=== PATIENT | female | born 2000 | race Caucasian/White ===

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

== ENCOUNTER 2022-03-06 02:03 | Day surgery (SDC) | payer OTHER, SELFPAY ==
[2022-02-24 14:31] VITALS: BMI 23.3
--- NOTE | 2022-02-24 14:35 | PC.NURSE ---
Report to the Outpatient Waiting Room, entrance under the green pavilion located off [facility], at time 1230 on date 03/06/22. Planned Procedure Time: 1330. Time changes happen often and if your time is changed the preop area will call you the afternoon before. - You and your visitor will be asked to self-screen and do not enter if you have any COVID symptoms. - Only one visitor is requested with a max of two and NO children visitors are allowed at this time. - The patient visitor may be requested to leave or wait in car when not with patient due to distancing restrictions. - A mask is REQUIRED within the hospital. Patients may have LIGHT MEAL Take the following medications with a SIP of water the morning of surgery: RX'D (N/A) Medications to discontinue per physician: N/A Date to take last dose: N/A Please no make-up, nail nigerian, hairspray, perfume, deodorant, or body powder the day of surgery. No jewelry (including any body piercings) or valuables the day of surgery, leave them at home. Please take a shower or bath the night before, or the morning of, surgery with an antibacterial soap. Wear comfortable, loose fitting clothing. - Jewelry must be removed prior to entering the operating room. Rings and piercings that are not removed may be cut off. - The hospital will not accept responsibility for valuables. - Please leave all valuables, including medications, at home the day of surgery. YOU MAY DRIVE YOURSELF HOME FROM THE HOSPITAL. Follow any additional instructions given to you from your surgeon. If you or anyone in your household have experienced Covid symptoms in the past week, please notify your surgeon or the nurse liaison at the phone number below for possible testing. Telephone instructions given to ANAM MENJIVAR and asked if any additional questions and then verbalized understanding. Patient advised to call surgeon office or pre surgery nurse liaison [phone] if any additional questions.
--- NOTE | 2022-03-06 07:28 | WPDHPUPDATE1 ---
History and Physical Update Update Date/Time: 03/06/22 07:28 History and Physical has been reviewed, including an updated exam of the patient. There are NO changes in the patient's condition. Risks, benefits, and alternatives have been discussed and questions answered. Patient agrees to proceed with procedure.
[2022-03-06 09:54] VITALS: BP 112/80; PULSE 81; RESP 18; TEMP 37.2; O2SAT 99
[2022-03-06 11:12] VITALS: BP 110/58; PULSE 64; RESP 16; O2SAT 98
[2022-03-06 11:22] VITALS: BP 109/57; PULSE 72; RESP 16; O2SAT 99
[2022-03-06 11:33] VITALS: BP 110/61; PULSE 73; RESP 16; O2SAT 99
[2022-03-06 11:50] VITALS: BP 101/64; PULSE 66; RESP 12; O2SAT 100
--- NOTE | 2022-03-06 11:57 | W.PM.PROC2 ---
Procedure Note - Detailed Date of Procedure 03/06/22 Pre-op Diagnosis subq mass left index finger Post-op Diagnosis Same Procedure Performed Excision the 1 cm subcutaneous mass of the left little finger Surgeon Kike Mullins MD Anesthesia Local Description of Procedure The subcutaneous mass near the distal interphalangeal joint of the patient's left small finger was marked in the holding area. She was then taken to the operating room and placed supine on the operating table. A time-out was held and confirmed at that point. The extremity was prepped and draped in usual fashion. The local anesthetic of 2% lidocaine with epinephrine was infiltrated as in intrathecal block, approximately 2-1/2 milliliter. Adequate anesthesia was obtained. The red tourniquet was placed to the base of the finger. The tumor was palpated and it was determined that a diagonal incision was appropriate. This was made and the tumor was identified and resected with sharp and blunt dissection primarily. The digital nerve was identified and preserved. The mass was removed without the difficulty and it was sent to pathology. The tourniquet was released and the wound was closed with interrupted 5 0 nylon suture. Small bandage was applied as usual. She is discharged with instructions in wound care and follow-up and has a prescription e-mail to her pharmacy the for tramadol 50 mg 6. Estimated Blood Loss 1 Drains No Packing No Pathology Yes Complications No immediate complications Condition Stable Disposition Same day
== END 2022-03-06 12:19 | disposition home or self-care (01) ==
PROVIDERS: PCP Family Medicine; Visit Provider Plastic Surgery
PROC: (CPT 26115; principal; 2022-03-06 11:30)
DX: D21.12 Benign neoplasm of connective and other soft tissue of left upper limb, including shoulder (principal)
CPT/HCPCS: 26115; 88304

== ENCOUNTER 2023-01-02 12:20 | Emergency (ER) | payer OTHER, SELFPAY ==
--- NOTE | ~2023-01-02 | US_ITS ---
EXAMINATION: US OB limited DATE: 01/02/2023 16:55 INDICATION: Vaginal bleeding during second trimester . TECHNIQUE: Real-time ultrasound of the pelvis was performed. The interpreting radiologist was not pre sent for the study. COMPARISON: None. FINDINGS: There is a single living fetus in breech presentation. The placenta is anterior and not low-lying wi th no evident subchorionic hematoma. heart rate is 147 beats per minute (bpm). The amniotic is subjectively normal. IMPRESSION: 1. Single living fetus in breech presentation with heart rate of 147 bpm. 2. Normal anterior placenta. Reviewed, dictated and finalized at location A. IN[employer] MACHINE TENDER [employer] IMPRESSION: 1. Single living fetus in breech presentation with heart rate of 147 bpm . 2. Normal anterior placenta.
[2023-01-02 12:27] VITALS: BP 117/76; PULSE 78; RESP 17; TEMP 36.6; O2SAT 100
[2023-01-02 14:25] LABS: Basophils Absolute Auto 0.1 K/mm3 (0.0-0.1); Basophils Percent Auto 0.4 % (0.2-1.2); Eosinophils Absolute Auto 0.1 K/mm3 (0-0.3); Eosinophils Percent Auto 0.8 % (0-4.4); Hematocrit 38.7 % (37.0-47.0); Hemoglobin 12.6 g/dL (12.0-15.0); Immature Granulocyte Absolute 0.07 K/mm3 (0.00-0.031); Immature Granulocyte Percent A 0.5 % (0-0.5); Lymphocytes Absolute Auto 1.17 K/mm3 (0.9-3.2); Lymphocytes Percent Auto 8.2 % (18.3-44.2); Mean Corpuscular HGB Conc 32.6 g/dl (32-36); Mean Corpuscular Volume 89.2 fl (80-100); Mean Platelet Volume 10.4 fl (7.4-10.4); Monocytes Absolute Auto 0.7 K/mm3 (0.1-0.6); Monocytes Percent Auto 4.6 % (2.6-8.5); Neutrophils Absolute Auto 12.2 K/mm3 (1.3-6.7); Neutrophils Percent Auto 85.5 % (45.5-73.1); Platelet Count Result 190 k/mm3 (150-375); Red Blood Count 4.34 M/mm3 (4.2-5.4); Red Cell Distribution Width 13.2 % (11.5-14.5); White Blood Count 14.2 K/mm3 (4.5-10.0)
[2023-01-02 17:23] VITALS: BP 125/85; PULSE 75; RESP 18; O2SAT 100
--- NOTE | 2023-01-02 18:17 | ED.FEMALEGU ---
HPI - Female Genitourinary General Chief complaint: Vaginal Bleeding Stated complaint: 19 weeks - spotting Time Seen by Provider: 01/02/23 15:40 Source: patient Mode of arrival: ambulatory Limitations: no limitations History of Present Illness HPI Narrative: 22 year old female presents today with complaints of brown red discharge and a small clot about 30 mintues prior to arrival. denies urinary symptoms. did call her ob last night due to right sided pain but is not having that now. states she is eating and drinking fine. 1st without complications. denies recent sexual intercourse. ob [facility]. Holliday. Denies cramping, increased urination. Related Data Home Medications Medication Instructions Recorded Confirmed docosahexaenoic acid [ DHA] PO 12/12/22 12/12/22 Allergies Allergy/AdvReac Type Severity Reaction Status Date / Time No Known Allergies Allergy Verified 01/02/23 15:15 Review of Systems Review of Systems: All systems reviewed & are unremarkable except as noted in HPI and below PMFSH Past Medical History Medical History Abnormal ultrasound Anemia Depression Depression with anxiety Lump on finger Nausea and vomiting No pertinent past medical history Pain in finger of left hand Urinary frequency Surgical History Surgical History No pertinent past surgical history Family History Family History Grandparent Cervical cancer Ovarian cancer Father Alcoholic Mother Alcoholic Grandparent Lung cancer Social History Social History Smoking status: Never smoker Second hand tobacco smoke exposure: No Alcohol intake: never Substance use: never Substance use type: does not use Lack of Transportation: No Lack of Food: Never True Current Housing: I Have Housing Concerned About Future Housing: No Difficulty Paying Gas/Electric Bills: No Difficulty Paying for Meds: No Currently Unemployed: YES Education: High School Diploma/GED Difficulty w/ Childcare or Family Care: No Living arrangements: with family Occupation/Education: student Gender identity (if verbalized by the patient): Female Sexual Orientation (if Verbalized by the Patient): Straight or Heterosexual Spiritual care concerns: No Exam Const: General: cooperative, healthy appearing, comfortable, no acute distress and well developed Orientation/consciousness: patient oriented x3 HENMT: Head: normal to inspection Eyes: General: appearance normal, both eyes and all related structures Resp: Effort & Inspection: normal respiratory effort and able to speak in complete sentences Auscultation: clear to auscultation bilaterally Cardio: Rate: regular rate Rhythm: regular rhythm Heart sounds: S1 normal heart sound present and S2 normal heart sound present GI: GI Palp: Yes Soft to palpation Auscultation: normal bowel sounds : Other: cervical exam deferred at this time as patient states she is no longer bleeding and she would prefer not to have it done Neuro: General: patient oriented x3 Course Vital Signs Vital signs: Vital Signs Temperature 97.8 F 01/02/23 12:27 Pulse Rate 78 01/02/23 12:27 Respiratory Rate 17 01/02/23 12:27 Blood Pressure 117/76 01/02/23 12:27 Pulse Oximetry 100 01/02/23 12:27 Oxygen Delivery Room Air 01/02/23 12:27 Temperature 97.8 F 01/02/23 12:27 Pulse Rate 75 01/02/23 17:23 Respiratory Rate 18 01/02/23 17:23 Blood Pressure 125/85 01/02/23 17:23 Pulse Oximetry 100 01/02/23 17:23 Oxygen Delivery Room Air 01/02/23 12:27 MDM - Female Genitourinary MDM Narrative Medical decision making narrative: 22-year-old family history as noted. Workup t
[2023-01-02 19:10] LABS: Appearance Urine Cloudy (Clear); Bacteria Urine None Seen /hpf; Bilirubin Urine Negative (Negative); Blood Urine Negative (Negative); Color Urine Yellow (Yellow); Glucose Urine UA Negative (Negative); Ketones Urine 1+ mg/dL (Negative); Leukocyte Esterase Ur Negative LEU/UL (Negative); Nitrate Urine Negative (Negative); Non Pathogenic Casts 0-2; Protein Urine Negative (Negative); RBC Urine 0-2 /hpf (0-2); Specific Grav Ur 1.027 (1.001-1.035); Squamous Epithelial Cell Urine Few /hpf (Few); WBC Urine 0-5 /hpf; pH Urine 6.5 (5.0-9.0)
[2023-01-02 19:12] LABS: Add Urine Microscopic? YES
== END 2023-01-02 19:30 | disposition home or self-care (01) ==
PROVIDERS: Emergency Medicine; Emergency Provider Nurse Practitioner Family; PCP Family Medicine
DX: O46.92 Antepartum hemorrhage, unspecified, second trimester (principal); Z3A.19 19 weeks gestation of pregnancy
CPT/HCPCS: 36415; 76815; 81001; 84702; 85025; 85461; 86850; 86900; 86901; 99284

== ENCOUNTER 2023-03-01 21:18 | Observation (INO) | payer OTHER, SELFPAY ==
--- NOTE | ~2023-03-01 | US_ITS ---
US OB follow up DATE: 03/02/2023 09:29 INDICATION: Third trimester bleeding TECHNIQUE: Real-time and color flow imaging COMPARISON: None FINDINGS: Live rivera intrauterine gestation, fetus in longitudinal lie, breech presentation, feta l heart rate of 140 bpm. Anterior placenta, lower margin over 5 cm above the internal os. Amniotic fluid index measures 23.9 cm, slightly above the 95th percentile at 22.8 cm. Biparietal diameter 7.3 cm; 29 weeks 3 days Head circumference 26.4 cm; 28 weeks 5 days Abdominal circumference 24.0 cm; 20 weeks 2 days Femur length 5.2 cm; 27 weeks 5 days Composite age by Hadlock formula is 28 weeks 4 days +/- 2 weeks, with CANDY of May 21, 2023, compared to May 25, 2023 by LMP. Estimated weight is 1197 +/- 180 g Estimated weight-GP: 46.6% Head circumference/abdominal circumference 1.10, within normal range of 1.00-1.21 Femur length/abdominal circumference 21.68, within normal range of 20.00-24.00 Femur length/head circumference 19.73, within normal range of 19.26, 720.71 IMPRESSION: Breech presentation Amniotic fluid index measures 23.9 cm, above the 95th percentile is 22.8 cm Reviewed, dictated and finalized at [facility]. Reviewed, dictated and finalized at location B. MATIC LATHE TENDER
[2023-03-01 21:57] VITALS: BP 115/60; PULSE 77
--- NOTE | 2023-03-01 21:59 | PC.NURSE ---
Alesha Holliday CNM at bedside to evaluate patient and discuss plan of care.
--- NOTE | 2023-03-01 22:00 | PC.NURSE ---
Plan of care discussed with patient. Patient admitted for observation overnight. Orders received. Vital signs and dopple FHT qshift and continuous toco monitoring overnight. Patient observation overnight for vaginal bleeding monitoring, patient will schedule ultrasound in her doctors office in AM.
--- NOTE | 2023-03-01 22:08 | PM.IMHP ---
H&P: HPI History of Present Illness Date/Time: 03/01/23 22:08 Chief Complaint: at 27.6 weeks gestation. pt admitted to LD for observation for vaginal bleeding. pt admitted to small amount of pink when wiping, no active bleeding, no blood on pad. pt c/o frequent urination, some pressure, occ back discomfort. denies fever, vaginal odor, abd pain, contractions. has been complicated by vaginal bleeding x2. in january small blood in cervical canal seen on US with anterior placenta. MFM US was positive for right sided aortic arch, echo scheduled. hx of previous uncomplicated vaginal delivery in 2021. hx anxiety, and acid reflux Review of Systems Review of Systems: All systems reviewed & are unremarkable except as noted in HPI and below PMFSH Past Medical History Medical History Abnormal ultrasound Anemia Depression Depression with anxiety Lump on finger Nausea and vomiting No pertinent past medical history Pain in finger of left hand Urinary frequency Surgical History Surgical History No pertinent past surgical history Family History Family History Grandparent Cervical cancer Ovarian cancer Father Alcoholic Mother Alcoholic Grandparent Lung cancer Social History Social History Smoking status: Never smoker Second hand tobacco smoke exposure: No Alcohol intake: never Substance use: never Substance use type: does not use Lack of Transportation: No Lack of Food: Never True Current Housing: I Have Housing Concerned About Future Housing: No Difficulty Paying Gas/Electric Bills: No Difficulty Paying for Meds: No Currently Unemployed: YES Education: High School Diploma/GED Difficulty w/ Childcare or Family Care: No Living arrangements: with family Occupation/Education: student Gender identity (if verbalized by the patient): Female Sexual Orientation (if Verbalized by the Patient): Straight or Heterosexual Spiritual care concerns: No Meds Home Medications and Allergies Home Medications Medication Instructions Recorded Confirmed Type docosahexaenoic acid [ DHA] PO 12/12/22 12/12/22 History Allergies Allergy/AdvReac Type Severity Reaction Status Date / Time No Known Allergies Allergy Verified 01/02/23 15:15 Vital Signs Vital Signs - 24 hr 03/01/23 21:57 Pulse Rate 77 Blood Pressure 115/60 Exam Const: General: cooperative and healthy appearing Resp: Effort & Inspection: normal respiratory effort Cardio: Rate: regular rate Rhythm: regular rhythm GI: Other: soft, gravid Back/Spine/Pelvis: Back: no CVA tenderness Skin: General skin exam: normal color Extrem: Right lower extremity: normal to inspection Left lower extremity: normal to inspection Psych: Appearance: grossly normal Assessment and Plan Assessment and plan (1) Abnormal ultrasound: Code(s): R93.89 - Abnormal findings on diagnostic imaging of other specified body structures Status: Acute (2) Vaginal bleeding: Code(s): N93.9 - Abnormal uterine and vaginal bleeding, unspecified Status: Acute Plan 27.6 weeks vaginal bleeding blood type A+ urine pending right aortic arch dr. arenas c0-managing care, plan to observe pt overnight, will have pt seen by ultrasound in our office in the morning. plan discussed with pt and her partner
[2023-03-01 22:21] VITALS: BMI 24.9
--- NOTE | 2023-03-01 22:21 | OBADM ---
This patient, Noman Rios, admitted to the OB room OB Post 116 for observation. Patient/family oriented to hospital policies and general routines including ID bracelet, bed and alarms, visiting hours, pain management, procedures, bathroom and other care routines, personal items, smoking policy, room service/diet, and visiting hours. Patient/Family are encouraged to report perceived risks to care and to ask questions if they do not understand what they are told or what they should do.
[2023-03-01 23:27] LABS: Appearance Urine Clear (Clear); Bacteria Urine None Seen /hpf; Bilirubin Urine Negative (Negative); Blood Urine Negative (Negative); Color Urine Yellow (Yellow); Glucose Urine UA Negative (Negative); Ketones Urine Negative (Negative); Leukocyte Esterase Ur Trace LEU/UL (Negative); Nitrate Urine Negative (Negative); Non Pathogenic Casts 0-2; Protein Urine Negative (Negative); RBC Urine 0-2 /hpf (0-2); Specific Grav Ur 1.004 (1.001-1.035); Squamous Epithelial Cell Urine None seen /hpf (Few); Urobilinogen Urine 0.2 mg/dL (<2.0); WBC Urine 0-5 /hpf
[2023-03-01 23:37] LABS: Add Urine Microscopic? YES
[2023-03-02 08:02] VITALS: BP 100/61; PULSE 77; PULSE 78; O2SAT 98
[2023-03-02 08:06] VITALS: RESP 16; TEMP 36.2
[2023-03-02 08:30] VITALS: BP 100/61; PULSE 79
--- NOTE | 2023-03-02 09:18 | PM.IMHP ---
H&P: HPI History of Present Illness Date/Time: 03/02/23 09:18 Chief Complaint: this patient is a 30-year-old 2 para 1001 at 28 weeks gestation who presents for vaginal bleeding. She had bright red blood on her bathroom tissue. There was no flowing bright red blood. This single episode. She came to Labor and delivery for monitoring and evaluation. She has been observed for over 8 hours. She is going for ultrasound at this time. This is the 1st episode of bleeding. She denies any cramping or vaginal discharge. She denies any nausea, vomiting, fever, chills. She denies any chest pain or shortness of breath. We will continue her short observation. Await ultrasound results. She has been on the heart tone monitor for an extended period and found to have reassuring heart tones for gestational age. She will follow-up in 2-3 days. Review of Systems Review of Systems: All systems reviewed & are unremarkable except as noted in HPI and below Constitutional: Constitutional: Denies chills, Denies fatigue, Denies fever(s) and Denies weakness Eyes: Eyes: Denies blurry vision, Denies change in vision, Denies loss of peripheral vision, Denies loss of vision, Denies other visual disturbances and Denies eye pain ENT: Denies vertigo, Denies dizziness, Denies hearing loss, Denies mouth pain, Denies nasal obstruction, Denies neck mass and Denies neck pain Cardiovascular: Cardiovascular: Denies chest pain, Denies diaphoresis, Denies syncope, Denies leg edema and Denies dyspnea Respiratory: Respiratory: Denies chest congestion, Denies cough, Denies hemoptysis, Denies dyspnea and Denies wheezing Gastrointestinal: Gastrointestinal: Denies abdominal pain, Denies constipation, Denies diarrhea, Denies nausea and Denies vomiting Genitourinary: Genitourinary: Denies hematuria, Denies change in libido, Denies nocturia, Denies genital lesions, Denies flank pain and Denies urinary urgency Musculoskeletal: Musculoskeletal: Denies abnormal gait, Denies back pain, Denies myalgias, Denies arthralgias, Denies joint swelling, Denies muscle weakness and Denies neck pain Integumentary/Breasts: Skin/Breast: Denies swelling, Denies breast pain, Denies breast mass, Denies dry skin, Denies nipple discharge, Denies unusual bruising and Denies jaundice Neurologic: Denies Neuro-related abnormal movements, Denies Abnormal speech present, Denies abnormal gait, Denies behavioral changes, Denies confusion, Denies vertigo, Denies dizziness, Denies syncope, Denies loss of vision, Denies memory loss, Denies convulsions and Denies weakness Psychiatric: Psychiatric: Denies abnormal sleep pattern, Denies behavioral changes, Denies change in libido, Denies confusion, Denies depression, Denies anhedonia and Denies memory loss Endocrine: Endocrine: Reports no additional endocrine complaints, Denies change in libido and Denies fatigue Hematologic/Lymphatic: Hematologic/Lymphatic: Reports no additional hematologic/lymphatic complaints Allergic/Immunologic: Allergic/Immunologic: Reports no additional allergic/immunologic complaints and Denies wheezing PMFSH Past Medical History Medical History Abnormal ultrasound Anemia Depression Depression with anxiety Lump on finger Nausea and vomiting No pertinent past medical history Pain in finger of left hand Urinary frequency Surgical History Surgical History No pertinent past surgical history Family History Family History Grandparent Cervical cancer Ovarian cancer Father Alcoholic Mother Alcoholic Grandparent Lung cancer Social History Social History Smoking status: Never smoker Second hand tobacco smoke exposure: No Alcohol intake: never Substance use: never Substance use type: do
--- NOTE | 2023-03-02 10:02 | PC.NURSE ---
Dr. Dejesus called and update on pt results from ultrasound. MD also aware that pt had brown discharge when she wiped but no new red bleeding noted. MD order pt be discharge and follow up with Alesha Holliday this week.
--- NOTE | 2023-03-30 09:15 | PM.OBTRLD ---
OB - Triage/Final Diagnosis Visit Information Comments/Additional reasons for admission: I have assessed the risk for this patient, Noman Rios, and determined that she would benefit from observation care. Evaluation Laboratory results: Laboratory Tests 03/01/23 23:14 Urine Color Yellow Urine Appearance Clear Urine pH 7.0 Ur Specific [place] 1.004 Urine Protein Negative Urine Glucose (UA) Negative Urine Ketones Negative Ur Blood (Man) Negative Urine Nitrate Negative Urine Bilirubin Negative Urine Urobilinogen 0.2 Leukocyte Esterase Rfl Trace H Urine RBC 0-2 Urine WBC 0-5 Ur Squamous Epith Cells None seen Urine Bacteria None seen Urine Casts 0-2
== END 2023-03-02 10:15 | disposition home or self-care (01) ==
PROVIDERS: Advanced Practice Midwife; Admitting Provider Obstetrics & Gynecology; PCP Family Medicine; Visit Provider Obstetrics & Gynecology
DX: O46.93 Antepartum hemorrhage, unspecified, third trimester (principal); Z3A.28 28 weeks gestation of pregnancy; Z79.899 Other long term (current) drug therapy
CPT/HCPCS: 59025; 76816; 81001; G0378; G0379

== ENCOUNTER 2023-05-22 06:25 | Inpatient (IN) | payer OTHER, SELFPAY ==
[2023-05-22] VITALS (75 sets, daily range): BP systolic 97–147; BP diastolic 51–82; PULSE 64–127; RESP 16–18; TEMP 36.1–37.7; O2SAT 89–100; BMI 29.9
--- NOTE | 2023-05-22 06:25 | LDADM ---
This patient, Noman Rios, was admitted to Labor/Delivery/Recovery 104 on 05/22/23 at 06:25. Plans for labor, pain management and were discussed with patient. Patient/family oriented to hospital policies and general routines including ID bracelet, bed and alarms, visiting hours, pain management, procedures, bathroom and other care routines, personal items, smoking policy, room service/diet and guest tray routines, security routines, and visiting hours. Patient/Family are encouraged to report perceived risks to care and to ask questions if they do not understand what they are told or what they should do. See OBIX for further documentation.
--- NOTE | 2023-05-22 07:18 | WPDOBADMIT ---
Obstetrics - Admit Note Admission Note: record reviewed. No pertinent additions to the history and/or any subsequent changes in the physical findings that are not consistent with the expected course of the were found. Additions to the history and/or subsequent changes in the physical findings follow. IOL, SVE /-2 AROM large amount of clear, odorless fluid, anticipate vaginal delivery
[2023-05-22 07:29] LABS: Basophils Percent Auto 0.4 % (0.2-1.2); Eosinophils Absolute Auto 0.1 K/mm3 (0-0.3); Eosinophils Percent Auto 1.3 % (0-4.4); Hematocrit 34.4 % (37.0-47.0); Hemoglobin 10.9 g/dL (12.0-15.0); Immature Granulocyte Absolute 0.05 K/mm3 (0.00-0.031); Immature Granulocyte Percent A 0.5 % (0-0.5); Lymphocytes Absolute Auto 2.15 K/mm3 (0.9-3.2); Lymphocytes Percent Auto 22.6 % (18.3-44.2); Mean Corpuscular HGB Conc 31.7 g/dl (32-36); Mean Corpuscular Hemoglobin 27.9 pg (26-34); Mean Platelet Volume 11.6 fl (7.4-10.4); Monocytes Absolute Auto 0.7 K/mm3 (0.1-0.6); Monocytes Percent Auto 7.1 % (2.6-8.5); Neutrophils Absolute Auto 6.5 K/mm3 (1.3-6.7); Neutrophils Percent Auto 68.1 % (45.5-73.1); Platelet Count Result 184 k/mm3 (150-375); Red Blood Count 3.91 M/mm3 (4.2-5.4); Red Cell Distribution Width 13.2 % (11.5-14.5); White Blood Count 9.5 K/mm3 (4.5-10.0)
[2023-05-22] MEDS: OXYTOCIN 30 UNITS/NS 500 ML 30 UNITS/500 ML BAG IV CONT (07:31)
[2023-05-22] MEDS: LACTATED RINGERS 1,000 ML 125 ML IV CONT ×2 (07:32→10:00)
--- NOTE | 2023-05-22 09:52 | WPDANESEPP ---
Anes - Eval Pre Procedure Procedure: labor epidural Date/Time: 05/22/23 09:52 Surgeon: Anjelica Preop Diagnosis: Pain during labor Pre Op Diagnosis: Induction of Labor Patient Data Age: 22 Gender: F Height: 1.63 m Weight: 79 kg Last Vital Signs Temp 37.1 C 05/22/23 07:33 Pulse 121 H 05/22/23 09:31 BP 147/70 H 05/22/23 09:31 Allergies Allergy/AdvReac Type Severity Reaction Status Date / Time No Known Allergies Allergy Verified 03/01/23 22:21 Home Medications Medication Instructions Recorded Confirmed Type prenat.vits,franc,zha-theh-mxsoi 1 tablet PO DAILY 04/27/23 05/22/23 History Laboratory Tests 05/22/23 06:39 WBC 9.5 K/mm3 (4.5-10.0) RBC 3.91 L M/mm3 (4.2-5.4) Hgb 10.9 L g/dL (12.0-15.0) Hct 34.4 L % (37.0-47.0) MCV 88.0 fl (80-100) MCH 27.9 pg (26-34) MCHC 31.7 L g/dl (32-36) RDW 13.2 % (11.5-14.5) Plt Count 184 k/mm3 (150-375) MPV 11.6 H fl (7.4-10.4) Immature Gran % (Auto) 0.5 % (0-0.5) Neut % (Auto) 68.1 % (45.5-73.1) Lymph % (Auto) 22.6 % (18.3-44.2) [place] % (Auto) 7.1 % (2.6-8.5) Eos % (Auto) 1.3 % (0-4.4) Baso % (Auto) 0.4 % (0.2-1.2) Lymph # (Auto) 2.15 K/mm3 (0.9-3.2) [place] # (Auto) 0.7 H K/mm3 (0.1-0.6) Eos # (Auto) 0.1 K/mm3 (0-0.3) Baso # (Auto) 0.0 K/mm3 (0.0-0.1) Abs Immat Gran (auto) 0.05 H K/mm3 (0.00-0.031) Absolute Neuts (auto) 6.5 K/mm3 (1.3-6.7) Absolute Nucleated RBC 0.000 K/mm3 (0.0-0.012) Nucleated RBC % 0.0 % (0.0-0.2) RPR Pending Blood Type A Positive Antibody Screen Negative Patient hx anesthesia problems: none Family hx anesthesia problems: none Results Review: All pre-operative results and documents have been reviewed as part of the pre-operative evaluation. [facility] Past Medical History Medical History Abnormal ultrasound Anemia Depression Depression with anxiety Lump on finger Nausea and vomiting No pertinent past medical history Pain in finger of left hand Urinary frequency Surgical History Surgical History No pertinent past surgical history Family History Family History Grandparent Cervical cancer Ovarian cancer Father Alcoholic Mother Alcoholic Grandparent Lung cancer Social History Social History Smoking status: Former smoker Tobacco type: e-cigarettes/vaping Second hand tobacco smoke exposure: No Additional smoking assessment comments: vaped for about a year Alcohol intake: never Substance use: never Substance use type: does not use Do You Feel Safe in your Home?: Yes Lack of Transportation: No Lack of Food: Never True Current Housing: I Have Housing Concerned About Future Housing: No Difficulty Paying Gas/Electric Bills: No Difficulty Paying for Meds: No Currently Unemployed: No Education: High School Diploma/GED Difficulty w/ Childcare or Family Care: No Living arrangements: with family Occupation/Education: student Gender identity (if verbalized by the patient): Female Sexual Orientation (if Verbalized by the Patient): Straight or Heterosexual Spiritual care concerns: No Exam Day of Procedure 05/22/23 09:52 Patient weight: overweight Neurological: alert and oriented
--- NOTE | 2023-05-22 12:02 | PM.OBPRVD ---
OB - Vaginal Delivery Note Procedure Delivery date: 05/22/23 Induction method: AROM and Per Pitocin Protocol Delivery monitor: External FHT and External Uterine Route of delivery: Specimen: No Quantitative Blood Loss (ml): 100 Anesthesia type: Epidural Disposition: Floor Baby Date of : 05/22/23 Time of : 11:53 Weeks of gestation at delivery: 39 Infant gender: Male presentation: vertex position: Left Occiput Anterior Placenta delivery description: Spontaneous Cord Vessel Description: 3 Vessels score one minute: 7 score five minutes: 9 Narrative: mother and baby skin to skin in stable condition
[2023-05-22] MEDS: OXYTOCIN 30 UNITS/NS 500 ML 30 UNITS/500 ML BAG 125 UNITS IV CONT (12:33)
[2023-05-22 12:40] LABS: Rapid Plasma Reagin Non-Reactive (NonReactive)
--- NOTE | 2023-05-22 14:50 | PC.NURSE ---
Patient transferred to post room #284 via wheel chair. Support person present. Oriented to unit, room, information board, rooming in, admission packet and security measures. Patient verbalizes understanding.
--- NOTE | 2023-05-22 15:41 | PC.NURSE ---
[id number] Introductions were made, then consulted with patient to assess needs related to . Mother led the conversation with her?plans to feed?her infant and the?experience so far. Encouraged understanding of the benefits of skin to skin (demonstrating unwrapping and placing upright on her chest), stimulating with massage touch, changing positions to encourage wakefulness, how to watch for early feeding cues, responsive feeding, feeding on demand (aiming for 8-12 times in 24 hours, about every 2-3 hours), milk production, building/maintaining a milk supply, duration of feeding, signs of adequate intake/output and how to record on the feeding sheet. Mother works well with her infant with encouragement and education. Mother independently latched infant to the right breast in a non-conventional cross cradle position. was able to maintain latch without pain to mother protecting the nipple with optimal positioning and latching. Mother shared her confidence with . She finished her first child when she became with the second child. Their first child is 18 months old. Reported to the Primary RN.
[2023-05-23 00:19] VITALS: BP 111/65; PULSE 93; RESP 18; TEMP 37.2; O2SAT 97
[2023-05-23 05:09] VITALS: BP 113/74; PULSE 78; RESP 18; TEMP 37; O2SAT 97
[2023-05-23 05:14] LABS: Hematocrit 33.1 % (37.0-47.0); Hemoglobin 10.5 g/dL (12.0-15.0)
[2023-05-23] MEDS: MULTIVIT/MIN/PREN/FOL AC/IRON TABLET 1 TAB PO (07:51)
[2023-05-23] MEDS: DOCUSATE SODIUM 100 MG CAPSULE PO (07:51)
[2023-05-23 08:06] VITALS: BP 121/69; PULSE 73; RESP 20; TEMP 36.6; O2SAT 97
--- NOTE | 2023-05-23 10:45 | PM.OBPNVD ---
OB - PN: Subj Subjective Date/time seen: 05/23/23 10:45 Patient comments: no complaints, pain well controlled, incisional pain, tolerating diet and flatus present OB - PN: Obj Data Labs 05/23/23 04:01 Labs: Laboratory Results - last 24 hr 05/22/23 05/23/23 06:39 04:01 Hgb 10.5 L Hct 33.1 L RPR Non-reactive OB - PN A/P Plan day: 1 Plan: routine care Comments: No problems, routine care Time Spent With Patient Time: Total time spent is greater than 50% in coordination of care (as documented) at patient's floor/unit and/or counseling patient: Exam Const: General: comfortable, no acute distress and alert Resp: Effort & Inspection: normal respiratory effort Auscultation: no crackles, no rales and no rhonchi Cardio: Rate: regular rate Heart sounds: no click, no murmurs and no rubs GI: Inspection: non-distended GI Palp: No Tenderness to palpation present (GI) Auscultation: normal bowel sounds Other: Incision - CDI Extrem: General: normal to inspection, no pedal edema and no calf tenderness
--- NOTE | 2023-05-23 10:46 | PM.OBDSVD ---
DS: Admitting Diagnosis Discharge Date May 22/2024 Admitting Diagnosis term OB - DS: Summary OB Procedures : None OB Procedures Intrapartum: Spontaneous Vag Delivery OB Procedures: : None Time Spent with Patient Time attestation: Total time spent providing and/or coordinating discharge services: DS: Data Data Completed and Pending Labs on day of discharge: Labs from last 24 hours 05/23/23 05/22/23 04:01 06:39 Hgb 10.5 L Hct 33.1 L RPR Non-reactive Discharge Plan Discharge Discharging Clinician: Evelyn Dejesus Patient Disposition: Home, Self-Care Activity: pelvic rest Diet: regular Patient Instructions: Antibiotic Form Stand Alone Forms: General Discharge Information Follow-up/Referrals: Evelyn Dejesus MD [Physician] - Discharge Medications: Continued #2 Tablet 1 tablet PO DAILY Date of admission: 05/22/23 06:25 Primary Care Provider: [place] Admitting Provider: Evelyn Dejesus Attending physician on admission: Evelyn Dejesus Condition: Stable
== END 2023-05-23 15:48 | disposition home or self-care (01) | DRG 560 ==
LOC: ANHLDR 06:31 → ANHOB2 14:56
PROVIDERS: Admitting Provider Obstetrics & Gynecology; PCP Family Medicine; Referring Provider Advanced Practice Midwife; Visit Provider Obstetrics & Gynecology
DX: O80 Encounter for full-term uncomplicated delivery (principal); Z37.0 Single live birth; Z3A.39 39 weeks gestation of pregnancy
CPT/HCPCS: 36415; 85014; 85018; 85025; 86592; 86850; 86900; 86901; A9270; J2590; J2795; J7120

== ENCOUNTER 2023-08-13 17:40 | Emergency (ER) | payer OTHER, SELFPAY ==
--- NOTE | 2023-08-13 17:41 | ED.DENTAL ---
HPI - Dental/Oral General Chief complaint: Upper Respiratory Infection Stated complaint: FISHER,face/teeth hurt Time Seen by Provider: 08/13/23 17:41 Source: patient Mode of arrival: ambulatory Limitations: no limitations History of Present Illness HPI Narrative: Noman is a 22-year-old female patient presenting to the clinic today with complaints of headache, ethmoid sinus pain, and upper dental pain x5 days. She reports she has taken Tylenol for the pain and that has not helped. Denies any fever, chills, body aches. Does have cough and congestion as well. Related Data Home Medications Medication Instructions Recorded Confirmed No Home Medications 08/13/23 08/13/23 Allergies Allergy/AdvReac Type Severity Reaction Status Date / Time No Known Allergies Allergy Verified 08/13/23 17:42 Review of Systems Review of Systems: Pertinent positives per HPI. Patient denies any fever, chills, rash, visual changes, dizziness, shortness of breath, chest pain, palpitations, nausea, vomiting, diarrhea, constipation, abdominal pain, or any urinary issues. [facility] Past Medical History Medical History Abnormal ultrasound Anemia Depression Depression with anxiety Lump on finger Nausea and vomiting No pertinent past medical history Pain in finger of left hand Urinary frequency Surgical History Surgical History No pertinent past surgical history Family History Family History Grandparent Cervical cancer Ovarian cancer Father Alcoholic Mother Alcoholic Grandparent Lung cancer Social History Social History Smoking status: Former smoker Tobacco type: e-cigarettes/vaping Second hand tobacco smoke exposure: No Additional smoking assessment comments: vaped for about a year Alcohol intake: never Substance use: never Substance use type: does not use Do You Feel Safe in your Home?: Yes Lack of Transportation: No Lack of Food: Never True Current Housing: I Have Housing Concerned About Future Housing: No Difficulty Paying Gas/Electric Bills: No Difficulty Paying for Meds: No Currently Unemployed: No Education: High School Diploma/GED Difficulty w/ Childcare or Family Care: No Living arrangements: with family Occupation/Education: student Gender identity (if verbalized by the patient): Female Sexual Orientation (if Verbalized by the Patient): Straight or Heterosexual Spiritual care concerns: No Comments At the time of my signature, I reviewed and agree with the nursing past medical, surgical, social, and family history. There is no relevant family history pertinent to the patient complaint. Exam Narrative: General: Well-developed, well nourished, in no apparent distress Head: Normocephalic, atraumatic Eyes: Pupils equally round and reactive to light bilaterally, EOM intact, sclera and conjunctive clear, no discharge, lids normal Ears: TMs intact and clear, ear canals clear, no drainage, grossly hearing normal. Nose: Nares patent, clear nasal discharge, moderate inflammation, right-sided ethmoid sinus tenderness. Mouth: Oral pharynx without lesions or masses, good dentition, MMM. Neck: Supple, trachea midline, no enlargement of anterior or posterior cervical nodes, no thyroid masses or goiter palpable. Cardio: Regular rate and rhythm, s1 and s2 normal, no murmur appreciated. Resp: Clear to auscultation bilaterally, no rhonchi, rales, wheezing or rubs Course Course Emergency Course: Portions of this record may have been created with voice recognition software. Level of Care: Express Care Visit Vital Signs Vital signs: Vital Signs Temperature 37.1 C 08/13/23 17:51 Pulse Rate 75 08/13/23 17:51 Respiratory Rate 16
[2023-08-13 17:51] VITALS: BP 120/70; PULSE 75; RESP 16; TEMP 37.1; O2SAT 100
== END 2023-08-13 18:00 | disposition home or self-care (01) ==
PROVIDERS: Emergency Provider Nurse Practitioner Family; PCP Family Medicine
DX: J06.9 Acute upper respiratory infection, unspecified (principal); Z87.891 Personal history of nicotine dependence
CPT/HCPCS: 99213; G0463

== ENCOUNTER 2023-08-15 09:34 | Emergency (ER) | payer OTHER, SELFPAY ==
[2023-08-15 09:42] VITALS: BP 120/80; PULSE 69; RESP 16; TEMP 36.8; O2SAT 99
--- NOTE | 2023-08-15 09:49 | ED.GENADULT ---
HPI - General Adult General Chief complaint: Upper Respiratory Infection Stated complaint: right side of face throbbing since last visit Time Seen by Provider: 08/15/23 09:56 Source: patient, RN notes reviewed and old records reviewed Mode of arrival: ambulatory Limitations: no limitations History of Present Illness HPI narrative: Patient presents today complaining of right-sided facial pain. She has been taking prednisone daily for the past couple of days to treat a URI. She reports that she began with nasal drainage, facial pain a little over a week ago. She reports that over the past couple of days the pain localized and got much worse. She does have some mild swelling to the right side of her cheek. She denies any injury or trauma. She reports that the swelling just began today. She denies any fever, chills, sweats Related Data Allergies Allergy/AdvReac Type Severity Reaction Status Date / Time No Known Allergies Allergy Verified 08/15/23 09:42 Review of Systems Review of Systems: All systems reviewed & are unremarkable except as noted in HPI and below Constitutional: Constitutional: Reports no additional constitutional complaints ENT: Reports system reviewed and no additional complaints, except as documented Cardiovascular: Cardiovascular: Reports no additional cardiovascular complaints Respiratory: Respiratory: Reports no additional respiratory complaints Gastrointestinal: Gastrointestinal: Reports no additional gastrointestinal complaints PMFSH Past Medical History Medical History Abnormal ultrasound Anemia Depression Depression with anxiety Lump on finger Nausea and vomiting No pertinent past medical history Pain in finger of left hand Urinary frequency Surgical History Surgical History No pertinent past surgical history Family History Family History Grandparent Cervical cancer Ovarian cancer Father Alcoholic Mother Alcoholic Grandparent Lung cancer Social History Social History Smoking status: Former smoker Tobacco type: e-cigarettes/vaping Second hand tobacco smoke exposure: No Additional smoking assessment comments: vaped for about a year Alcohol intake: never Substance use: never Substance use type: does not use Do You Feel Safe in your Home?: Yes Lack of Transportation: No Lack of Food: Never True Current Housing: I Have Housing Concerned About Future Housing: No Difficulty Paying Gas/Electric Bills: No Difficulty Paying for Meds: No Currently Unemployed: No Education: High School Diploma/GED Difficulty w/ Childcare or Family Care: No Living arrangements: with family Occupation/Education: student Gender identity (if verbalized by the patient): Female Sexual Orientation (if Verbalized by the Patient): Straight or Heterosexual Spiritual care concerns: No Comments At the time of my signature, I reviewed and agree with the nursing past medical, surgical, social, and family history. There is no relevant family history pertinent to the patient complaint. Exam Const: General: cooperative, no acute distress, alert and awake Orientation/consciousness: oriented to person, oriented to place and oriented to time HENMT: Head: normal to inspection Ears: external ears normal and other (Air-fluid level noted right ear) Face/Nose/Sinus: Facial tenderness on exam of face and sinuses (Right side, very faint swelling noted to the right zygomatic arch) Mouth: Yes Normal oral and palatal mucosa present Throat: posterior oropharynx abnormal erythema and postnasal drainage Resp: Effort & Inspection: normal respiratory effort and able to speak in complete sentences Auscultation: clear to auscultation bilaterally, no crackles, no r
== END 2023-08-15 10:04 | disposition home or self-care (01) ==
PROVIDERS: Emergency Provider Nurse Practitioner Family; PCP Family Medicine
DX: J01.90 Acute sinusitis, unspecified (principal); Z87.891 Personal history of nicotine dependence
CPT/HCPCS: 99213; G0463

== ENCOUNTER 2023-09-19 08:45 | Emergency (ER) | payer OTHER, SELFPAY ==
[2023-09-19 08:56] VITALS: BP 104/60; PULSE 67; RESP 16; TEMP 36.6; O2SAT 99
--- NOTE | 2023-09-19 08:57 | ED.URI ---
HPI - URI/Sore Throat General Chief Complaint: Upper Respiratory Infection Stated Complaint: Sore Throat Time Seen by Provider: 09/19/23 08:57 Source: patient and RN notes reviewed Mode of arrival: ambulatory Limitations: no limitations History of Present Illness HPI Narrative: 22 y/o female presented with c/o sore throat, onset yesterday. Denies painful swallow or difficulty maintaining secretions. States she may have tonsil stone. Has gargled warm salt water. She has been tolerating oral liquids and solids without difficulty. She denies fevers, chills, dysphagia, cough, congestion, and rhinorrhea. MD elicited complaint: sore throat Related Data Home Medications Medication Instructions Recorded Confirmed No Home Medications 09/19/23 09/19/23 Allergies Allergy/AdvReac Type Severity Reaction Status Date / Time No Known Allergies Allergy Verified 09/19/23 08:57 Review of Systems Review of Systems: CONSTITUTIONAL: Denies body aches, fever, chills, or sweats. EYES: Denies visual changes, redness, or discharge. ENT: Reports sore throat. Denies rhinorrhea, congestion, or otalgia. CARDIOVASCULAR: Denies chest pain, palpitations, or edema. RESPIRATORY: Denies dyspnea or cough. GASTROINTESTINAL: Denies abdominal pain, nausea, vomiting, or diarrhea. SKIN: Denies rash, itching, or wounds. MUSCULOSKELETAL: Denies back pain, joint pain, or myalgia. NEUROLOGIC: Reports headache. [facility] Past Medical History Medical History Abnormal ultrasound Anemia Depression Depression with anxiety Lump on finger Nausea and vomiting No pertinent past medical history Pain in finger of left hand Urinary frequency Surgical History Surgical History No pertinent past surgical history Family History Family History Grandparent Cervical cancer Ovarian cancer Father Alcoholic Mother Alcoholic Grandparent Lung cancer Social History Social History Smoking status: Former smoker Tobacco type: e-cigarettes/vaping Second hand tobacco smoke exposure: No Additional smoking assessment comments: vaped for about a year Alcohol intake: never Substance use: never Substance use type: does not use Do You Feel Safe in your Home?: Yes Lack of Transportation: No Lack of Food: Never True Current Housing: I Have Housing Concerned About Future Housing: No Difficulty Paying Gas/Electric Bills: No Difficulty Paying for Meds: No Currently Unemployed: No Education: High School Diploma/GED Difficulty w/ Childcare or Family Care: No Living arrangements: with family Occupation/Education: student Gender identity (if verbalized by the patient): Female Sexual Orientation (if Verbalized by the Patient): Straight or Heterosexual Spiritual care concerns: No Exam Narrative: GENERAL: Well-appearing. No acute distress. EYES: Conjunctivae clear. EOMI. ENT: Mucous membranes moist. TM pearly jin with normal light reflex bilaterally; no tragal tenderness. Oropharynx mildly erythematous without lesions. Tonsils without enlargement or exudate. No drooling, no hoarseness, no trismus, uvula midline. No tripod positioning, hot potato voice, or soft palate swelling. NECK: Supple. No lymphadenopathy. CHEST: Clear to auscultation, breath sounds equal. No respiratory distress, speaks in full sentences. HEART: Regular rate and rhythm. No murmur heard. SKIN: Warm, dry, no rash. NEURO: Alert and oriented x3. Course Course Emergency Course: Patient is aware of diagnosis, understands and agrees to treatment plan. Anticipatory guidance given. Patient agrees to follow-up as directed and is aware of reasons to seek care at the emergency department. Portions of this record may have been create
[2023-09-19 09:27] LABS: EDSTREPNEGPOS1 Presumptive Negative
== END 2023-09-19 09:10 | disposition home or self-care (01) ==
PROVIDERS: Emergency Provider Nurse Practitioner Family; PCP Nurse Practitioner Family
DX: J02.9 Acute pharyngitis, unspecified (principal); Z87.891 Personal history of nicotine dependence
CPT/HCPCS: 87081; 87880; 99213; G0463

== ENCOUNTER 2024-06-19 10:43 | Emergency (ER) | payer OTHER, SELFPAY ==
--- NOTE | 2024-06-19 10:47 | ED_ITS ---
HPI - URI/Sore Throat General Chief Complaint: Upper Respiratory Infection Stated Complaint: throat sore,red,swollen Time Seen by Provider: 06/19/24 10:45 Source: patient Mode of arrival: ambulatory Limitations: no limitations History of Present Illness HPI Narrative: Patient is a 23-year-old female who presents with sore throat, headache, body aches for 1 day. Denies any fever, chills, nausea, vomiting, diarrhea, congestion, ear pain, cough. Has not taken anything for symptoms. Patient is 21 weeks Related Data Home Medications ?Medication ?Instructions ?Recorded ?Confirmed ?Last Taken ?Type aspirin 81 mg chewable tablet 81 mg PO DAILY 06/19/24 06/19/24 Unknown History cholecalciferol (vitamin D3) 50 2,000 unit PO DAILY 06/19/24 06/19/24 Unknown History mcg (2,000 unit) capsule (Vitamin D3) [id number] 1 mg 1 tablet PO DAILY 06/19/24 06/19/24 Unknown History tablet vitamin B12 0.5 mg-folic acid 1 mg 1 tablet PO DAILY 06/19/24 06/19/24 Unknown History tablet Allergies Allergy/AdvReac Type Severity Reaction Status Date / Time No Known Allergies Allergy Verified 06/19/24 11:07 Review of Systems Review of Systems: All systems reviewed & are unremarkable except as noted in HPI and below Constitutional: Constitutional: Reports body ache(s), Denies fever(s), Reports headache(s), Denies malaise and Denies weakness Eyes: Eyes: Denies loss of vision ENT: Denies otalgia, Reports headache(s), Denies nasal congestion, Denies sinus pain and Reports sore throat Cardiovascular: Cardiovascular: Denies chest pain, Denies irregular heart rhythm and Denies dyspnea Respiratory: Respiratory: Denies cough and Denies dyspnea Gastrointestinal: Gastrointestinal: Denies abdominal pain, Denies melena, Denies hematochezia, Denies diarrhea, Denies nausea and Denies vomiting Musculoskeletal: Musculoskeletal: Denies back pain, Reports myalgias and Denies arthralgias Integumentary/Breasts: Skin/Breast: Denies pruritus and Denies rash Neurologic: Denies headache(s), Denies loss of vision and Denies weakness Psychiatric: Psychiatric: Reports no additional psychiatric complaints PMFSH Past Medical History Medical History Frequent headaches Rhinitis, allergic Abnormal ultrasound Lump on finger Pain in finger of left hand Anemia Urinary frequency Nausea and vomiting Depression with anxiety Depression No pertinent past medical history Surgical History Surgical History No pertinent past surgical history Family History Family History Grandparent Cervical cancer Ovarian cancer Father Alcoholic Mother Alcoholic Grandparent Lung cancer Social History Social History Smoking status: Former smoker Tobacco type: e-cigarettes/vaping Second hand tobacco smoke exposure: No Additional smoking assessment comments: vaped for about a year Alcohol intake: never Substance use: never Substance use type: does not use Do You Feel Safe in your Home?: Yes Lack of Transportation: No Lack of Food: Never True Current Housing: I Have Housing Concerned About Future Housing: No Difficulty Paying Gas/Electric Bills: No Difficulty Paying for Meds: No Currently Unemployed: No Education: High School Diploma/GED Difficulty w/ Childcare or Family Care: No Living arrangements: with family Occupation/Education: student Gender identity (if verbalized by the patient): Female Sexual Orientation (if Verbalized by the Patient): Straight or Heterosexual Spiritual care concerns: No Comments At time of signature, agree with nursing past medical, surgical, social and family history. There is no relevant family history pertinent to the presenting complaint. Exam Const: General: cooperative, healthy appearing, comfortable, no acute distress and well nourished Nutritional Appearance: well nourished Orientation/consciousness: patient oriented x3 Limitations: no limitations HENMT: Head: normal to inspection, normocephalic and atraumatic Ears: hearing grossly normal bilaterally, external ears normal, TM's normal bilaterally and EAC's normal Face/Nose/Sinus: Normal external nose present, Normal nares present, Normal nasal mucous membranes and turbinates present, Normal septum present, normal facial exam, sinuses nontender and face symmetric Face and sinus: normal facial exam, sinuses nontender and face symmetric Mouth: Yes Normal oral and palatal mucosa present, Yes lip normal and Yes moist mucous membranes Teeth and gingiva: dentition normal Throat: uvula midline, abnormal tonsil bilateral erythema, exudates and hypertrophy 3+, posterior oropharynx abnormal erythema and postnasal drainage Eyes: General: appearance normal, both eyes and all related structures Alignment and Position: alignment normal and position normal Periorbital: periorbital findings normal Eyelids: eyelids normal Pupils: Equal, round and reactive pupils present Neck: Neck: normal visual inspection, full ROM, no lymphadenopathy and supple Chest: Chest palpation & inspection: normal inspection of the chest and normal palpation of entire chest wall Resp: Effort & Inspection: normal respiratory effort and able to speak in complete sentences Auscultation: clear to auscultation bilaterally, no crackles, no rales, no rhonchi and no wheezes Cardio: Rate: regular rate Rhythm: regular rhythm Heart sounds: S1 normal heart sound present and S2 normal heart sound present GI: Inspection: normal to inspection Skin: General skin exam: normal color and no rashes or lesions noted Neuro: General: patient oriented x3 and moves all extremities Cranial nerves: Yes Equal, round and reactive pupils present Speech: normal speech Gait exam (Neuro): Normal gait present Extrem: General: normal to inspection, full ROM and no edema Psych: Appearance: grossly normal and well kempt Mental Status: mental status grossly normal Speech and movement: Normal speech and movement present Affect: normal affect Attitude: cooperative Thought process: Normal thought process present Course Course Emergency Course: Patient is aware of diagnosis, understands and agrees to treatment plan. Anticipatory guidance given. Patient agrees to follow-up as directed and is aware of reasons to seek care at the emergency department. Portions of this record may have been created with voice recognition software Level of Care: Express Care Visit Vital Signs Vital signs: Vital Signs Temperature 36.2 C L 06/19/24 10:58 Pulse Rate 98 06/19/24 10:58 Respiratory Rate 06/19/24 10:58 Blood Pressure 108/57 L 06/19/24 10:58 Pulse Oximetry 98 06/19/24 10:58 Oxygen Delivery Room Air 06/19/24 10:58 Temperature 36.2 C L 06/19/24 10:58 Pulse Rate 98 06/19/24 10:58 Respiratory Rate 20 06/19/24 10:58 Blood Pressure 108/57 L 06/19/24 10:58 Pulse Oximetry 98 06/19/24 10:58 Oxygen Delivery Room Air 06/19/24 10:58 Reviewed MDM - URI/Sore Throat MDM Narrative Medical decision making narrative: Patient positive for strep, will treat with antibiotics. Pt well hydrated appearing, in no respiratory distress, hemodynamically stable. Recommend supportive care. The patient is stable at time of discharge the clinical impression was discussed and the patient was given the opportunity to ask questions, which were addressed as completely as possible given the information available at present. Anticipatory guidance and return to care precautions were discussed and the importance of primary care follow-up was stressed and encouraged. The patient voiced understanding of the plan, indications to return, and the need for follow-up. Patient is appropriate for outpatient treatment and follow-up. Differential diagnosis considered: Sagastume virus, strep pharyngitis, allergic rhinitis, upper respiratory tract infection, sinusitis, rhinosinusitis, nasopharyngitis. viral pharyngitis, otitis media, otitis externa, otitis effusion, foreign body, cerumen impaction, viral syndrome, and influenza.? Medical Records Attestation: I reviewed the patient's medical records. Lab Data Attestation: I reviewed the patient's lab results. Lab results narrative: Patient positive for strep throat Discharge Plan Discharge Clinical Impression: Strep throat Patient Disposition: Home Condition: Stable Instructions: Strep Throat (ED) Additional Instructions: Your rapid strep swab was positive today at [facility]. After 24 hours on antibiotics throw tooth brush away and start using a new one. Wash your sheets and cup/water bottle that is used daily. Do not share drinks. For pain, you may take: Tylenol 650-1000mg by mouth every 4-6 hours. Do not exceed 4000mg in 24 hours. Increase fluids, avoid caffeine. Other symptomatic treatments include: -Antihistamine medication such as Benadryl at night and Zyrtec/Claritin/Nupur during the day can help improve symptoms. -Use Flonase twice a day for 5 days then daily to help reduce the inflammation and dry up your sinuses. -You can also use Sudafed or Mucinex. Be sure to drink plenty of water with these medications at least 8 ounces with every dose and it is important to drink 8 to 10 glasses of water per day. Water is a natural decongestant -Eat and drink things that are easy to swallow, like tea or soup, or popsicles. -Oral rinses such as: Salt water gargles and/or may use topical anesthetic (eg. Chloraseptic spray) or lozenges to relieve dryness or throat pain). -Frequent hand washing or hand dentofacial orthopedics dentist is one of the best ways to prevent spread of infection. -Using a vaporizer or humidifier at night will also help thin secretions and help with coughing up phlegm. -Follow up with primary care provider in 3-5 days if condition is not improving - For new or worsening symptoms go directly to the nearest ER Patient Language: Nicaraguan Prescriptions: New amoxicillin 500 mg capsule 500 mg PO BID 10 Days Qty: 20 0RF No Action [id number] 1 mg tablet 1 tablet PO DAILY aspirin 81 mg tablet,chewable 81 mg PO DAILY cholecalciferol (vitamin D3) [Vitamin D3] 50 mcg (2,000 unit) capsule 2,000 unit PO DAILY vitamin [id number] acid 0.5-1 mg tablet 1 tablet PO DAILY sertraline 25 mg tablet 25 mg PO DAILY Qty: 30 5RF Follow-up/Referrals: Nia Dubon NP [Primary Care Provider] - 3 Days Time of Disposition: 11:35
[2024-06-19 10:58] VITALS: BP 108/57; PULSE 98; RESP 20; TEMP 36.2; O2SAT 98
[2024-06-20 11:57] LABS: EDSTREPNEGPOS1 Positive (Negative)
== END 2024-06-19 11:40 | disposition home or self-care (01) ==
PROVIDERS: Emergency Provider Nurse Practitioner Family; PCP Nurse Practitioner Family
DX: O99.512 Diseases of the respiratory system complicating pregnancy, second trimester (principal); J02.0 Streptococcal pharyngitis; O99.342 Other mental disorders complicating pregnancy, second trimester; F41.8 Other specified anxiety disorders; O99.012 Anemia complicating pregnancy, second trimester; D64.9 Anemia, unspecified; Z3A.21 21 weeks gestation of pregnancy
CPT/HCPCS: 87880; 99213; G0463

== ENCOUNTER 2024-09-21 10:53 | Outpatient (RCR) | payer OTHER, SELFPAY ==
[2024-09-21 11:33] VITALS: BP 93/57; PULSE 69
== END 2024-10-29 11:26 | disposition other institution (70) ==
LOC: ANHOBOP 10:53
PROVIDERS: PCP Nurse Practitioner Family; Visit Provider Advanced Practice Midwife
DX: O36.8130 Decreased fetal movements, third trimester, not applicable or unspecified (principal); Z3A.34 34 weeks gestation of pregnancy
CPT/HCPCS: 59025

== ENCOUNTER 2024-10-20 17:17 | Inpatient (IN) | payer OTHER, SELFPAY ==
[2024-10-20] VITALS (9 sets, daily range): BP systolic 103–141; BP diastolic 58–78; PULSE 68–91; RESP 16–18; TEMP 36.4–36.9; O2SAT 97
--- NOTE | 2024-10-20 18:09 | WPDOBADMIT ---
Obstetrics - Admit Note Admission Note: record reviewed. No pertinent additions to the history and/or any subsequent changes in the physical findings that are not consistent with the expected course of the were found. Additions to the history and/or subsequent changes in the physical findings follow. Admit in labor and SROM clear fluid, anticipate vaginal delivery
[2024-10-20 18:12] LABS: Hematocrit 35.7 % (37.0-47.0); Hemoglobin 11.9 g/dL (12.0-15.0); Immature Granulocyte Percent A 0.3 % (0-0.5); Lymphocytes Absolute Auto 2.62 K/mm3 (0.9-3.2); Mean Corpuscular HGB Conc 33.3 g/dl (32-36); Mean Corpuscular Hemoglobin 28.2 pg (26-34); Mean Corpuscular Volume 84.6 fl (80-100); Nucleated Red Blood Cells Absolute Auto 0.000 K/mm3 (0.0-0.012); Nucleated Red Blood Cells Perc 0.0 % (0.0-0.2); Platelet Count Result 205 k/mm3 (150-375); Red Blood Count 4.22 M/mm3 (4.2-5.4); White Blood Count 11.7 K/mm3 (4.5-10.0)
--- NOTE | 2024-10-20 18:45 | PM.OBPRVD ---
OB - Vaginal Delivery Note Procedure Delivery date: 10/20/24 Delivery monitor: External FHT and External Uterine Route of delivery: Laceration Description: None Specimen: No Quantitative Blood Loss (ml): 75 Anesthesia type: None Disposition: Floor Complications: No immediate complications [place] Baby Date of : 10/20/24 Time of : 18:32 Gestational Age by Date: 39 Infant gender: Male Weight (pounds): 6 Weight (ounces): 8 presentation: vertex position: Left Occiput Anterior Placenta delivery description: Spontaneous Cord Vessel Description: 3 Vessels score one minute: 9 score five minutes: 9
[2024-10-20 19:11] LABS: Syphilis IgG/IgM Antibody Non-Reactive (Nonreactive)
[2024-10-20] MEDS: SERTRALINE HCL 50 MG TABLET PO (22:10)
[2024-10-21 01:00] VITALS: BP 97/57; PULSE 77; RESP 18; TEMP 36.6; O2SAT 100
[2024-10-21 05:37] LABS: Hematocrit 32.9 % (37.0-47.0); Hemoglobin 10.4 g/dL (12.0-15.0)
--- NOTE | 2024-10-21 07:05 | P.PNOB_ITS ---
OB - PN: Subj Subjective Date/time seen: 10/21/24 07:05 Interval history: pp day 1 doing well desires d/c home OB - PN: Obj Data Labs 10/21/24 04:30 Labs: Laboratory Results - last 24 hr 10/20/24 10/21/24 18:04 04:30 WBC 11.7 H RBC 4.22 Hgb 11.9 L 10.4 L Hct 35.7 L 32.9 L MCV 84.6 MCH 28.2 MCHC 33.3 RDW 13.5 Plt Count 205 MPV 11.2 H Immature Gran % (Auto) 0.3 Neut % (Auto) 68.5 Lymph % (Auto) 22.3 [place] % (Auto) 7.9 Eos % (Auto) 0.7 Baso % (Auto) 0.3 Lymph # (Auto) 2.62 [place] # (Auto) 0.9 H Eos # (Auto) 0.1 Baso # (Auto) 0.0 Abs Immat Gran (auto) 0.04 H Absolute Neuts (auto) 8.0 H Absolute Nucleated RBC 0.000 Nucleated RBC % 0.0 Syphilis IgG/IgM Ab Non-reactive Blood Type A Positive Antibody Screen Negative OB - PN A/P Plan day: 1 Plan: routine care and discharge home Time Spent With Patient Time: Total time spent is greater than 50% in coordination of care (as documented) at patient's floor/unit and/or counseling patient: Review of Systems 2 Review of Systems: All systems reviewed & are unremarkable except as noted in HPI and below Exam 2 Const: General: cooperative, healthy appearing and comfortable Chest: Chest palpation & inspection: normal inspection of the chest Resp: Effort & Inspection: normal respiratory effort Cardio: Rate: regular rate Back/Spine/Pelvis: Back: no CVA tenderness Skin: General skin exam: normal color Neuro: General: patient oriented x3 Extrem: General: normal to inspection
[2024-10-21 07:40] VITALS: BP 114/59; PULSE 73; RESP 18; TEMP 37; O2SAT 98
[2024-10-21] MEDS: MULTIVIT/MIN/PREN/FOL AC/IRON TABLET 1 TAB PO (08:49)
--- NOTE | 2024-10-21 11:15 | PC.NURSE ---
Introductions were made, then consulted with patient to assess needs related to . Mother was talking on the phone and was unable to engage in a conversation at this time. She was made aware that assistance is available to her if needed. Resources provided for inpatient and outpatient services with the feeding sheet, mom/baby guide and name written on the communication board. Mother voiced understanding of information and will call if there is a request for assistance. Reported to the Primary RN.?
[2024-10-21 12:01] VITALS: BP 121/65; PULSE 96; RESP 16; TEMP 36.9; O2SAT 96
[2024-10-21] MEDS: TETANUS,DIPHTHERIA,AC PERTUSSIS ADULT (0.5 ML) BOOSTRIX IM (18:18)
--- NOTE | 2024-10-24 15:36 | P.DS_ITS ---
DS: Admitting Diagnosis Discharge Date 10/21/24 Admitting Diagnosis labor, SROM DS: Discharge Diagnosis Discharge Diagnosis (1) (normal spontaneous vaginal delivery): Code(s): O80 - Encounter for full-term uncomplicated delivery Status: Acute OB - DS: Summary OB Procedures : None OB Procedures Intrapartum: Spontaneous Vag Delivery OB Procedures: : None Peripartum Data Laceration Description: None Time Spent with Patient Time attestation: Total time spent providing and/or coordinating discharge services: Discharge Plan Discharge Attending physician on discharge: Micheal Dejesus Consulting providers: Abril Holliday Discharging Clinician: Abril Holliday Patient Disposition: Home Activity: pelvic rest Diet: regular Discharge Instructions: Education: Mom and Baby Guide Given to: Mother Follow-Up: Call your delivering provider's office for an appointment to be seen in: 4 Weeks Mom and baby should come to the [facility] for the follow-up appointment. Appointment Date/Time: October 24, 2024 at 8:00 am What to expect at your follow-up visit: Blood Pressure Check Physical Assessment Call [phone] if you are unable to keep your appointment time. BREAST CARE: * Wear a snug supportive bra. * For engorgement discomfort: Breast Feeding: * Apply warm moist washcloths * Express milk as needed to relieve engorgement * Wear loose clothing Bottle Feeding: * May apply ice packs * For sore nipples: * Identify correct latch-on * Apply warm moist washcloths before and after nursing * Air dry nipples after nursing * May apply Lansinoh cream to nipples EPISIOTOMY/PERINEAL CARE: * Until bleeding stops, use your livier bottle after urinating * Change your pad frequently throughout the day * You may take sitz baths several times a day (fill your bathtub with warm water and soak for 20 minutes.) Do NOT bathe in the water * No tub baths until seen by your physician - You may shower ACTIVITY: * Rest as much as possible. * Do not exercise or lift anything heavier than your baby (such as laundry or other children.) * Avoid stairs or driving as much as possible. * Do not put anything into the vagina. No douching, tampons, or sexual activity until seen by physician. NOTIFY PHYSICIAN IF YOU HAVE ANY QUESTIONS OR IF ANY OF THE FOLLOWING SYMPTOMS OCCUR: * If your episiotomy or incision becomes red, swollen, or more painful than what you have experienced in the hospital. * If your vaginal bleeding becomes foul smelling. * If your vaginal bleeding becomes more heavy than a period or if your bleeding changes from pink to bright red. However, you may pass an occasional walnut- sized clot once or twice for the first week . * If you experience a sharp, shooting pain in you calves. * If you discover a hard, reddened area on your breast or if you experience flu- like symptoms. DIET: * Eat regular, well-balanced meals. * Drink plenty of fluids daily. If , drink to thirst. Patient Instructions: Antibiotic Form Patient Language: Armenian Stand Alone Forms: General Discharge Information Follow-up/Referrals: Abril Holliday CNM [Certified Nurse Circulator, [employer]] - 4 Weeks Discharge Medications: Continued ipylsmsn-tit-[id number]-FA 1 mg tablet 1 tablet PO DAILY aspirin 81 mg tablet,chewable 81 mg PO DAILY cholecalciferol (vitamin D3) [Vitamin D3] 50 mcg (2,000 unit) capsule 2,000 unit PO DAILY vitamin X45-uthji acid 0.5-1 mg tablet 1 tablet PO DAILY amoxicillin 500 mg capsule 500 mg PO BID 10 Days Qty: 20 0RF sertraline 50 mg tablet 50 mg PO DAILY Qty: 30 2RF Date of admission: 10/20/24 17:17 Primary Care Provider: Nia Dubon Admitting Provider: Micheal Dejesus Attending physician on admission: Micheal Dejesus Condition: Stable
== END 2024-10-21 20:10 | disposition home or self-care (01) | DRG 560 ==
LOC: ANHLDR 18:16 → ANHOB2 21:00
PROVIDERS: Advanced Practice Midwife; Admitting Provider Obstetrics & Gynecology; PCP Nurse Practitioner Family; Visit Provider Obstetrics & Gynecology
DX: O80 Encounter for full-term uncomplicated delivery (principal); Z3A.38 38 weeks gestation of pregnancy; Z37.0 Single live birth
CPT/HCPCS: 36415; 85014; 85018; 85025; 86593; 86850; 86900; 86901; 90715; A9270